=== PATIENT | female | born 1990 | race Caucasian/White ===

== ENCOUNTER 2019-03-21 18:27 | Emergency (ER) | payer SELFPAY ==
[2019-03-21] MEDS ORDERED: ASPIRIN 81 MG TAB.CHEW PO ONE (18:45)
[2019-03-21] MEDS: IV RINGERS SOLUTION,LACTATED 1,000 ML IV SCH ×2 (18:49→19:21)
--- NOTE | 2019-03-21 18:54 | EKG ---
[address] [address] Test Date: 2019-03-21 Test Time: 18:53:56 Pat Name: PARRISH KAPOOR Department: Room: Gender: F [facility] Recovery Special Tactics: : 1990 Requested By: TUNG DAWSON Order Number: [id number] Reading MD: Roberto Harris MD Measurements Intervals [place] Rate: 103 P: 39 DE: 160 QRS: 5 QRSD: 74 T: 41 QT: 360 QTc: 474 Interpretive Statements SINUS TACHYCARDIA Electronically Signed On 03-22-2019 17:34:34 CDT by Roberto Harris MD
--- NOTE | 2019-03-21 19:38 | RAD ---
EXAM: CHEST 2 VIEWS. HISTORY: Dyspnea, chest pain. COMPARISON: None. FINDINGS: Frontal and lateral views of the chest are obtained. There are no confluent infiltrates. There is no pneumothorax or pleural effusion. The heart is not enlarged. IMPRESSION: 1. No confluent infiltrates. Electronically signed by: Kinza Benitez MD (03/21/2019 7:35 PM) [facility]
[2019-03-21 19:47] LABS: BASO # 0.1 x10^3/uL (0.0-0.2); BASO % 1 % (0-3); EOS # 0.4 x10^3/uL (0.0-0.7); EOS % 3 % (0-3); HEMOGLOBIN 13.4 g/dL (12.0-15.5); LYMPH # 2.1 x10^3/uL (1.0-4.8); LYMPH % 18 % (24-48); MEAN CORPUSCULAR HEMOGLOBIN 30 pg (25-35); MEAN CORPUSCULAR HGB CONC 33 g/dL (31-37); MEAN CORPUSCULAR VOLUME 93 fL (79-100); MONO # 0.9 x10^3/uL (0.0-1.1); MONO % 7 % (0-9); NEUT # 8.7 x10^3uL (1.8-7.7); NEUT % 71 % (31-73); PLATELET COUNT 217 x10^3/uL (140-400); RED BLOOD COUNT 4.43 x10^6/uL (3.50-5.40); RED CELL DISTRIBUTION WIDTH 13.9 % (11.5-14.5); WHITE BLOOD COUNT 12.2 x10^3/uL (4.0-11.0)
[2019-03-21 19:50] LABS: BARBITURATES NEG (NEG); BENZODIAZEPINES NEG (NEG); CANNABINOIDS NEG (NEG); COCAINE NEG (NEG); METHADONE NEG (NEG); OPIATES NEG (NEG); PHENCYCLIDINE NEG (NEG)
[2019-03-21 19:51] LABS: BILIRUBIN,URINE NEG (NEG); CLARITY,URINE HAZY; COLOR,URINE YELLOW; GLUCOSE,URINE NEG (NEG); NITRITE,URINE NEG (NEG); UROBILINOGEN,URINE 1 mg/dL (0.2 mg/dL)
[2019-03-21 19:52] LABS: BACTERIA,URINE 0 /HPF (0-FEW); SQUAMOUS EPITHELIAL CELL,UR OCC /LPF
[2019-03-21 20:05] LABS: ALBUMIN 2.8 g/dL (3.4-5.0); AMPHETAMINE/METHAMPHETAMINE NEG (NEG); DIRECT BILIRUBIN 0.1 mg/dL (0.0-0.2); MAGNESIUM 1.9 mg/dL (1.8-2.4); POTASSIUM 3.6 mmol/L (3.5-5.1); TOTAL BILIRUBIN 0.3 mg/dL (0.2-1.0); TOTAL PROTEIN 6.6 g/dL (6.4-8.2)
--- NOTE | 2019-03-21 20:42 | ED.ADGEN ---
Past History Past Medical History: No Pertinent History Past Surgical History: No Surgical History Alcohol Use: None Drug Use: None Adult General Chief Complaint Chief Complaint ".. I just had my daughter Inga.. 5 days ago.. vaginal.. every thing went okay.. Except they had to induce delivery... because I was pre-eclamptic.. hypertension... Pt. I ve gotten more short of breath, ... my ankles are swelling.. and I having chest pain... " [facility] HPI Patient is a 28 year old female who presents with above hx with complaints of chest pain and dyspnea. . Patient recently delivered a child Inga 5 days ago [facility]. Pt. delivery was induce 9 days early because of mother 's (Pt) hypertension. Pt. had protein in urine, hypertension. Pt. received balloon dilation of cervix, and rupture of membranes. Patient didn't receive continued doses of Pitocin. Patient was in labor approximately 30-36 hours. Patient advised that are planning a but she finally progressed with her delivery. Patient does not smoke. No history of specific ill contacts. No history of travel. No history of trauma. No history of prior cardiac issues. Patient had no history of DVTs or pulmonary embolisms. No history of coagulo ángel with her or family members.. Normally follows at [facility] . Patient's chest pain pain is localized on right chest wall area ,there is some pleuritic component. Patient states that at times pain is severe. Currently there has been some resolution of her pain. Patient does note that she has marked changes in ankle edema since the delivery. Patient is not breast-feeding Review of Systems Review of Systems Constitutional: Denies fever or chills [] Eyes: Denies change in visual acuity, redness, or eye pain [] HENT: Denies nasal congestion or sore throat [] Respiratory Complaints of shortness of breath Cardiovascular: No additional information not addressed in HPI [] GI: Denies abdominal pain, nausea, vomiting, bloody stools or diarrhea [] : Denies dysuria or hematuria [] Musculoskeletal: Denies back pain or joint pain [] Complaints of new ankle edema Integument: Denies rash or skin lesions [] Neurologic: Denies headache, focal weakness or sensory changes [] Endocrine: Denies polyuria or polydipsia [] All other systems were reviewed and found to be within normal limits, except as documented in this note. Family History Family History Noncontributory Current Medications Current Medications Current Medications Medications (Trade) Dose Ordered Sig/Acosta Start Time Stop Time Status Last Admin Dose Admin Aspirin (Children'S Aspirin) 324 mg 1X ONCE 03/21/19 18:45 03/21/19 18:56 DC 03/21/19 18:50 324 MG Enoxaparin Sodium (Lovenox 120mg Syringe) 120 mg 1X ONCE 03/21/19 22:30 03/21/19 22:31 DC 03/21/19 22:33 120 MG Furosemide (Lasix) 40 mg 1X ONCE 03/21/19 22:30 03/21/19 22:31 DC 03/21/19 22:34 40 MG Info (Do NOT chart on this entry -- for MONITORING) 1 each PRN DAILY PRN 03/21/19 21:00 03/22/19 00:21 DC Iohexol (Omnipaque 350 Mg/ml) 100 ml 1X ONCE 03/21/19 21:30 03/21/19 21:31 DC 03/21/19 21:17 100 ML Lactated Ringer's 1,000 ml @ 1,000 mls/hr Q1H 03/21/19 18:38 03/21/19 19:37 DC 03/21/19 19:21 1,000 MLS/HR See nursing for home meds Allergies Allergies Allergies Coded Allergies Type Severity Reaction Last Updated Verified No Known Drug Allergies 03/21/19 No Physical Exam Physical Exam Constitutional: Moderately acute distress, non-toxic appearance. [] HENT: Normocephalic, atraumatic, bilateral external ears normal, oropharynx moist, no oral exudates, nose normal. [] Eyes: PERRLA, EOMI, conjunctiva normal, no discharge. [] Neck: Normal range of motion, no tenderness, supple, no stridor. Mild JVD at 30� Neck circumference more than 17 inches Cardiovascular: Tachycardia Heart rate regular rhythm, no murmur [, PMI slightly to the left] Lungs & Thorax: Bilateral breath sounds equal at apexes with scattered crackles on bilateral bases on auscultation [] Abdomen: Bowel sounds normal, soft, no tenderness, no masses, no pulsatile masses. [Morbid]Obese. Skin: Warm, dry, no erythema, no rash. [] Back: No tenderness, no CVA tenderness. [] Extremities: No tenderness, no cyanosis, no clubbing, ROM intact, bilateral ankle edema. [] No findings of cording Neurologic: Alert and oriented X 3, normal motor function, normal sensory function, no focal deficits noted. []DTRs are +2 at patella and brachial Psychologic: Affect anxious, judgement normal, mood normal. [] Current Patient Data Vital Signs Vital Signs Date Time Temp Pulse Resp B/P (MAP) Pulse Ox O2 Delivery O2 Flow Rate FiO2 03/22/19 00:11 71 18 161/107 (125) 98 Room Air Lab Results Laboratory Tests Test 03/21/19 19:25 03/21/19 19:44 03/21/19 20:36 03/21/19 23:46 White Blood Count 12.2 x10^3/uL (4.0-11.0) H Red Blood Count 4.43 x10^6/uL (3.50-5.40) Hemoglobin 13.4 g/dL (12.0-15.5) Hematocrit 41.0 % (36.0-47.0) Mean Corpuscular Volume 93 fL (79-100) Mean Corpuscular Hemoglobin 30 pg (25-35) Mean Corpuscular Hemoglobin Concent 33 g/dL (31-37) Red Cell Distribution Width 13.9 % (11.5-14.5) Platelet Count 217 x10^3/uL (140-400) Neutrophils (%) (Auto) 71 % (31-73) Lymphocytes (%) (Auto) 18 % (24-48) L Monocytes (%) (Auto) 7 % (0-9) Eosinophils (%) (Auto) 3 % (0-3) Basophils (%) (Auto) 1 % (0-3) Neutrophils # (Auto) 8.7 x10^3uL (1.8-7.7) H Lymphocytes # (Auto) 2.1 x10^3/uL (1.0-4.8) Monocytes # (Auto) 0.9 x10^3/uL (0.0-1.1) Eosinophils # (Auto) 0.4 x10^3/uL (0.0-0.7) Basophils # (Auto) 0.1 x10^3/uL (0.0-0.2) Urine Collection Type Unknown Urine Color Yellow Urine Clarity Hazy Urine pH 7.0 Urine Specific [place] 1.015 Urine Protein Trace (NEG-TRACE) Urine Glucose (UA) Neg mg/dL (NEG) Urine Ketones (Stick) Neg mg/dL (NEG) Urine Blood Large (NEG) Urine Nitrite Neg (NEG) Urine Bilirubin Neg (NEG) Urine Urobilinogen Dipstick 1 mg/dL (0.2 mg/dL) Urine Leukocyte Esterase Small (NEG) Urine RBC 6-10 /HPF (0-2) Urine WBC 1-4 /HPF (0-4) Urine Squamous Epithelial Cells Occ /LPF Urine Bacteria 0 /HPF (0-FEW) Sodium Level 142 mmol/L (136-145) Potassium Level 3.6 mmol/L (3.5-5.1) Chloride Level 107 mmol/L (98-107) Carbon Dioxide Level 22 mmol/L (21-32) Anion Gap 13 (6-14) Blood Urea Nitrogen 15 mg/dL (7-20) Creatinine 1.0 mg/dL (0.6-1.0) Estimated GFR (Cockcroft-Gault) 67.0 Glucose Level 96 mg/dL (70-99) Calcium Level 9.0 mg/dL (8.5-10.1) Magnesium Level 1.9 mg/dL (1.8-2.4) Total Bilirubin 0.3 mg/dL (0.2-1.0) Direct Bilirubin 0.1 mg/dL (0.0-0.2) Aspartate Amino Transferase (AST) 22 U/L (15-37) Alanine Aminotransferase (ALT) 24 U/L (14-59) Alkaline Phosphatase 103 U/L (46-116) Creatine Kinase 94 U/L (26-192) Troponin I Quantitative 0.160 ng/mL (0-0.055) H 0.929 ng/mL (0-0.055) H JP-Tbp-U-Type Natriuretic Peptide 784 pg/mL (0-124) H Total Protein 6.6 g/dL (6.4-8.2) Albumin 2.8 g/dL (3.4-5.0) L Lipase 67 U/L (73-393) L Urine Opiates Screen Neg (NEG) Urine Methadone Screen Neg (NEG) Urine Barbiturates Neg (NEG) Urine Phencyclidine Screen Neg (NEG) Urine Amphetamine/Methamphetamine Neg (NEG) Urine Benzodiazepines Screen Neg (NEG) Urine Cocaine Screen Neg (NEG) Urine Cannabinoids Screen Neg (NEG) Urine Ethyl Alcohol Neg (NEG) POC Urine HCG, Qualitative hcg positive (Negative) Prothrombin Time 9.3 SEC (9.4-11.4) L Prothrombin Time INR 0.9 (0.9-1.1) PTT 24 SEC (23-33) D-Dimer (Tammie) 1.49 mg/L (0.00-0.50) H EKG EKG My interpretation of EKG shows a sinus tachycardia at 103 beats. There is some QRS abnormalities in anterior lateral region. But no findings of acute STEMI with contralateral changes. 1853 My interpretation EKG #2 at 2333 hrs. shows a sinus rhythm at 70 bpm. Does have some nonspecific contour changes anterior lateral leads. There have been changes in T waves in V1 and V3. But no obvious findings of acute STEMI with contral ateral changes Radiology/Procedures Radiology/Procedures [][address] [address] IMAGING REPORT Signed PATIENT: PARRISH SANDERS ACCOUNT: [id number] : 1990 LOCATION: ER AGE: 28 SEX: F EXAM STATUS: REG ER ORD. PHYSICIAN: TUNG DAWSON MD REASON: Pleuretic cp, dyspnea, 5 days post vag. delivery PROCEDURE: CT ANGIOGRAPHY CHEST EXAM: CT ANGIOGRAPHY OF THE CHEST WITH AND WITHOUT INTRAVENOUS CONTRAST. HISTORY: Chest pain, dyspnea. TECHNIQUE: Computed tomographic angiography of the chest was performed before and after the intravenous administration of iodinated contrast. 3-D maximum intensity projections were also performed. COMPARISON: None. FINDINGS: Images of the upper abdomen reveal no acute abnormality. Bone windows reveal no suspicious lesions. Suboptimal opacification of the pulmonary arterial tree limits sensitivity for small pulmonary emboli. None are seen. There is no aortic dissection or aneurysm. There are no pathologically enlarged mediastinal or axillary lymph nodes. There is trace pericardial and bilateral pleural fluid. The heart is mildly enlarged. There is a small hiatal hernia. An uncalcified nodule in the superior segment of the right lower lobe measures 4 mm and is likely benign at this small size. There are no infiltrates. IMPRESSION: 1. Limited sensitivity is low. No pulmonary emboli are identified. 2. Mild cardiomegaly. 3. A 4 mm right lower lobe nodule is most likely benign in this demographic and requires no further follow-up. 4. Small hiatal hernia. *One or more of the following individualized dose reduction techniques were utilized for this examination: 1. Automated exposure control. 2. Adjustment of the mA and/or kV according to patient size. 3. Use of iterative reconstruction technique. Electronically signed by: Kinza Benitez MD (03/21/2019 9:41 PM) [facility] DICTATED AND SIGNED BY: LAURA BENITEZ MD DATE: 03/21/192140 CC: TUNG DAWSON MD; PCP,UNKNOWN ~ IMAGING REPORT Signed PATIENT: PARRISH SANDERS ACCOUNT: [id number] : 1990 LOCATION: ER AGE: 28 SEX: F EXAM STATUS: REG ER ORD. PHYSICIAN: TUNG DAWSON MD REASON: dyspnea, cp PROCEDURE: CHEST PA & LATERAL EXAM: CHEST 2 VIEWS. HISTORY: Dyspnea, chest pain. COMPARISON: None. FINDINGS: Frontal and lateral views of the chest are obtained. There are no confluent infiltrates. There is no pneumothorax or pleural effusion. The heart is not enlarged. IMPRESSION: 1. No confluent infiltrates. Electronically signed by: Kinza Benitez MD (03/21/2019 7:35 PM) [facility] DICTATED AND SIGNED BY: LAURA BENITEZ MD DATE: 03/21/191934 CC: TUNG DAWSON MD; PCP,UNKNOWN ~ Course & Med Decision Making Course & Med Decision Making Pertinent Labs and Imaging studies reviewed. (See chart for details) Discussed presentation, testing and treatment plan with . Patient's differential of TX, post delivery cardiomyopathy, versus DVT.. Patient to be transferred to [facility] for cardiology and pulmonary consults. We will obtain CT angio chest prior to transfer and attempt to differentiate cause of chest pain. Labs and CT still pending. Still awaiting transport at 1845 hrs. will repeat trop and EKG [] Final Impression Final Impression 1. Chest pain 2. Dyspnea 3. Elevated troponin 0.160 4. Elevated BNP 784 5. Mild leukocytosis 12.7[] 6. Suspect Cardiomyopathy vs TX 7. Albumin 2.8 8. Hematuria Dragon Disclaimer Dragon Disclaimer This electronic medical record was generated, in whole or in part, using a voice recognition dictation system. Discharge Summary Visit Information Final Diagnosis Problems Medical Problems: (1) Cardiomyopathy Status: Acute (2) Chest pain Status: Acute Brief Hospital Course Allergies Allergies Coded Allergies Type Severity Reaction Last Updated Verified No Known Drug Allergies 03/21/19 No Vital Signs Vital Signs Date Time Temp Pulse Resp B/P (MAP) Pulse Ox O2 Delivery O2 Flow Rate FiO2 03/22/19 00:11 71 18 161/107 (125) 98 Room Air Lab Results Laboratory Tests Test 03/21/19 19:25 03/21/19 19:44 03/21/19 20:36 03/21/19 23:46 White Blood Count 12.2 x10^3/uL (4.0-11.0) Red Blood Count 4.43 x10^6/uL (3.50-5.40) Hemoglobin 13.4 g/dL (12.0-15.5) Hematocrit 41.0 % (36.0-47.0) Mean Corpuscular Volume 93 fL (79-100) Mean Corpuscular Hemoglobin 30 pg (25-35) Mean Corpuscular Hemoglobin Concent 33 g/dL (31-37) Red Cell Distribution Width 13.9 % (11.5-14.5) Platelet Count 217 x10^3/uL (140-400) Neutrophils (%) (Auto) 71 % (31-73) Lymphocytes (%) (Auto) 18 % (24-48) Monocytes (%) (Auto) 7 % (0-9) Eosinophils (%) (Auto) 3 % (0-3) Basophils (%) (Auto) 1 % (0-3) Neutrophils # (Auto) 8.7 x10^3uL (1.8-7.7) Lymphocytes # (Auto) 2.1 x10^3/uL (1.0-4.8) Monocytes # (Auto) 0.9 x10^3/uL (0.0-1.1) Eosinophils # (Auto) 0.4 x10^3/uL (0.0-0.7) Basophils # (Auto) 0.1 x10^3/uL (0.0-0.2) Urine Collection Type Unknown Urine Color Yellow Urine Clarity Hazy Urine pH 7.0 Urine Specific [place] 1.015 Urine Protein Trace (NEG-TRACE) Urine Glucose (UA) Neg mg/dL (NEG) Urine Ketones (Stick) Neg mg/dL (NEG) Urine Blood Large (NEG) Urine Nitrite Neg (NEG) Urine Bilirubin Neg (NEG) Urine Urobilinogen Dipstick 1 mg/dL (0.2 mg/dL) Urine Leukocyte Esterase Small (NEG) Urine RBC 6-10 /HPF (0-2) Urine WBC 1-4 /HPF (0-4) Urine Squamous Epithelial Cells Occ /LPF Urine Bacteria 0 /HPF (0-FEW) Sodium Level 142 mmol/L (136-145) Potassium Level 3.6 mmol/L (3.5-5.1) Chloride Level 107 mmol/L (98-107) Carbon Dioxide Level 22 mmol/L (21-32) Anion Gap 13 (6-14) Blood Urea Nitrogen 15 mg/dL (7-20) Creatinine 1.0 mg/dL (0.6-1.0) Estimated GFR (Cockcroft-Gault) 67.0 Glucose Level 96 mg/dL (70-99) Calcium Level 9.0 mg/dL (8.5-10.1) Magnesium Level 1.9 mg/dL (1.8-2.4) Total Bilirubin 0.3 mg/dL (0.2-1.0) Direct Bilirubin 0.1 mg/dL (0.0-0.2) Aspartate Amino Transf (AST/SGOT) 22 U/L (15-37) Alanine Aminotransferase (ALT/SGPT) 24 U/L (14-59) Alkaline Phosphatase 103 U/L (46-116) Creatine Kinase 94 U/L (26-192) Troponin I Quantitative 0.160 ng/mL (0-0.055) 0.929 ng/mL (0-0.055) TR-Pge-G-Type Natriuretic Peptide 784 pg/mL (0-124) Total Protein 6.6 g/dL (6.4-8.2) Albumin 2.8 g/dL (3.4-5.0) Lipase 67 U/L (73-393) Urine Opiates Screen Neg (NEG) Urine Methadone Screen Neg (NEG) Urine Barbiturates Neg (NEG) Urine Phencyclidine Screen Neg (NEG) Urine Amphetamine/Methamphetamine Neg (NEG) Urine Benzodiazepines Screen Neg (NEG) Urine Cocaine Screen Neg (NEG) Urine Cannabinoids Screen Neg (NEG) Urine Ethyl Alcohol Neg (NEG) Bedside Urine HCG, Qualitative hcg positive (Negative) Prothrombin Time 9.3 SEC (9.4-11.4) Prothromb Time International Ratio 0.9 (0.9-1.1) Activated Partial Thromboplast Time 24 SEC (23-33) D-Dimer (Tammie) 1.49 mg/L (0.00-0.50) Brief Hospital Course Ms. Sanders is a 28 old female who presented with CP and CHF. Transfer to [facility] for Pul. and Cardiology consult.s Discharge Information Condition at Discharge: Improved, Stable Disposition/Orders: D/C to Another Facility Dischare Medications Current Medications Aspirin (Children'S Aspirin) 324 mg 1X ONCE PO Last administered on 03/21/19at 18:50; Admin Dose 324 MG; Start 03/21/19 at 18:45; Stop 03/21/19 at 18:56; Status DC Lactated Ringer's 1,000 ml @ 1,000 mls/hr Q1H IV Last administered on 03/21/19at 19:21; Admin Dose 1,000 MLS/HR; Start 03/21/19 at 18:38; Stop 03/21/19 at 19:37; Status DC Iohexol (Omnipaque 350 Mg/ml) 100 ml 1X ONCE IV Last administered on 03/21/19at 21:17; Admin Dose 100 ML; Start 03/21/19 at 21:30; Stop 03/21/19 at 21:31; Status DC Info (Do NOT chart on this entry -- for MONITORING) 1 each PRN DAILY PRN MC SEE COMMENTS; Start 03/21/19 at 21:00; Stop 03/22/19 at 00:21; Status DC Enoxaparin Sodium (Lovenox 120mg Syringe) 120 mg 1X ONCE SQ Last administered on 03/21/19at 22:33; Admin Dose 120 MG; Start 03/21/19 at 22:30; Stop 03/21/19 at 22:31; Status DC Furosemide (Lasix) 40 mg 1X ONCE IVP Last administered on 03/21/19at 22:34; Admin Dose 40 MG; Start 03/21/19 at 22:30; Stop 03/21/19 at 22:31; Status DC Dragon Disclaimer This chart was dictated in whole or in part using Voice Recognition software in a busy, high-work load, and often noisy Emergency Department environment. It may contain unintended and wholly unrecognized errors or omissions. TUNG DAWSON MD Mar 21, 2019 20:42
[2019-03-21] MEDS ORDERED: CONTRAST GIVEN MC PRN (21:00)
[2019-03-21] MEDS ORDERED: IOHEXOL 350 MG/ML 100 ML VIAL. IV ONE (21:30)
--- NOTE | 2019-03-21 21:45 | RAD ---
EXAM: CT ANGIOGRAPHY OF THE CHEST WITH AND WITHOUT INTRAVENOUS CONTRAST. HISTORY: Chest pain, dyspnea. TECHNIQUE: Computed tomographic angiography of the chest was performed before and after the intravenous administration of iodinated contrast. 3-D maximum intensity projections were also performed. COMPARISON: None. FINDINGS: Images of the upper abdomen reveal no acute abnormality. Bone windows reveal no suspicious lesions. Suboptimal opacification of the pulmonary arterial tree limits sensitivity for small pulmonary emboli. None are seen. There is no aortic dissection or aneurysm. There are no pathologically enlarged mediastinal or axillary lymph nodes. There is trace pericardial and bilateral pleural fluid. The heart is mildly enlarged. There is a small hiatal hernia. An uncalcified nodule in the superior segment of the right lower lobe measures 4 mm and is likely benign at this small size. There are no infiltrates. IMPRESSION: 1. Limited sensitivity is low. No pulmonary emboli are identified. 2. Mild cardiomegaly. 3. A 4 mm right lower lobe nodule is most likely benign in this demographic and requires no further follow-up. 4. Small hiatal hernia. *One or more of the following individualized dose reduction techniques were utilized for this examination: 1. Automated exposure control. 2. Adjustment of the mA and/or kV according to patient size. 3. Use of iterative reconstruction technique. Electronically signed by: Kinza Benitez MD (03/21/2019 9:41 PM) [facility]
[2019-03-21] MEDS ORDERED: FUROSEMIDE 40 MG/4 ML VIAL IVP ONE (22:30)
[2019-03-21] MEDS ORDERED: ENOXAPARIN ** NOTE DOSE ** SYRINGE SQ ONE (22:30)
[2019-03-22 00:11] VITALS: BP 161/107
--- NOTE | 2019-03-22 01:14 | EKG ---
[address] [address] Test Date: 2019-03-21 Test Time: 23:33:17 Pat Name: PARRISH KAPOOR Department: Room: Gender: F Guest Relations Officer: : 1990 Requested By: TUNG DAWSON Order Number: [id number] Reading MD: Measurements Intervals [place] Rate: 70 P: 42 [place]: 196 QRS: 7 QRSD: 78 T: 18 QT: 406 QTc: 441 Interpretive Statements SINUS RHYTHM QRS(T) CONTOUR ABNORMALITY CONSIDER ANTEROLATERAL MYOCARDIAL DAMAGE POSSIBLY ABNORMAL ECG RI6.01 No previous ECG available for comparison
--- NOTE | 2019-03-22 23:50 | DS ---
DATE OF DISCHARGE: 03/22/2019 HISTORY OF PRESENT ILLNESS: The patient is a 28-year-old female patient who delivered a healthy baby girl on 03/16/2019 at [facility], who presented to [facility] secondary to shortness of breath, was noted to have elevated troponin and transferred to [facility] for further evaluation and treatment. She reports she was out in the heat, stood up and felt dizzy, felt as if her heart was beating fast and was a little short of breath. She went to the Emergency Room where she was evaluated and apparently her troponin was slightly elevated and D-dimer was also high. She was diagnosed with non-ST segment elevation myocardial infarction, has had a CT angiography of the chest, which showed no evidence of pulmonary emboli. She was seen in consultation by the railroad construction director and qc scientist. Her echocardiogram showed that her left ventricular systolic function is normal, ejection fraction estimated at 60%. There is normal left ventricular segmental wall motion. She had trace tricuspid regurgitation with an estimated pulmonary artery pressure of 38 mmHg. There is no evidence of significant pericardial effusion. She was seen by Dr. Young who thinks that she probably has asthma exacerbation and the patient has no PE. Venous ultrasound was negative. DISCHARGE MEDICATIONS: The patient was discharged home on no medication other than albuterol 2.5 mg by nebulizer every 4 hours. FINAL DISCHARGE DIAGNOSES. 1. Asthma exacerbation. 2. Status post recent delivery, normal full term . SOURAV OVIEDO MD DR: MAMI/carlos JOB#: [id number] / [id number]
== END 2019-03-22 00:21 | disposition short-term general hospital (02) ==
LOC: ER 18:27
DX: O90.3 Peripartum cardiomyopathy (principal); O11.5 Pre-existing hypertension with pre-eclampsia, complicating the puerperium; O10.93 Unspecified pre-existing hypertension complicating the puerperium; O99.13 Other diseases of the blood and blood-forming organs and certain disorders involving the immune mechanism complicating the puerperium; D72.829 Elevated white blood cell count, unspecified; R31.9 Hematuria, unspecified; R79.89 Other specified abnormal findings of blood chemistry; Z98.890 Other specified postprocedural states
CPT/HCPCS: 36415; 71046; 71275; 80048; 80076; 80307; 81001; 81025; 82550; 83690; 83735; 83880; 84443; 84484; 85025; 85379; 85610; 85730; 87086; 93005; 96372; 96374; 99285; J1650; J1940; J7120; Q9967